=== PATIENT | male | born 1935 | race Caucasian/White ===

== ENCOUNTER 2017-11-26 10:16 | Emergency (ER) | payer OTHER, BC ==
[~2017-11-26] VITALS: Ht 175.3 cm; Wt 70.4 kg
[2017-11-26 10:50] LABS: HEMOGLOBIN 15.1 G/DL (12.5-16.6); MCH 33.7 PG (29.0-34.0); MCHC 35.1 G/DL (30.0-36.0); PLATELET COUNT 217 K/uL (156-360); RBC DIS.WIDTH-CV 13.7 % (11.8-14.6); RBC DIS.WIDTH-SD 48.1 % (39-53); RED BLOOD COUNT 4.48 M/uL (4.00-5.50); WHITE BLOOD COUNT 16.1 K/uL (4.1-10.2)
[2017-11-26 11:03] LABS: ALBUMIN 4.2 g/dL (3.2-4.8)
[2017-11-26 11:04] LABS: CHLORIDE 104 mEq/L (99-109); POTASSIUM 4.3 mEq/L (3.7-5.4); SODIUM 139 mEq/L (136-147)
[2017-11-26 11:06] LABS: GLUCOSE 113 mg/dL (70-99); TOTAL PROTEIN 7.7 g/dL (6.4-8.3)
[2017-11-26 11:08] LABS: TOTAL BILIRUBIN 1.2 mg/dL (0.0-1.0)
[2017-11-26 11:08] LABS: APPEARANCE CLEAR ((CLEAR)); BILIRUBIN NEGATIVE; BLOOD NEGATIVE; COLOR YELLOW ((YELLOW)); GLUCOSE (STRIP) NEGATIVE; KETONES 5; LEUKOCYTES NEGATIVE; NITRITE NEGATIVE; PROTEIN (STRIP) 100
[2017-11-26 11:09] LABS: ALKALINE PHOSPHATASE 53 IU/L (3-129)
[2017-11-26 11:09] LABS: BACTERIA NONE SEEN /HPF; EPITHELIAL CELLS NONE SEEN /HPF; MUCUS 1+ /LPF; RED BLOOD CELLS 0-5 /HPF (0-5); UCUL ADDED? NO; WHITE BLOOD CELLS 0-5 /HPF (0-5)
[2017-11-26 11:10] LABS: CREATININE 0.9 mg/dL (0.6-1.3); GFR ESTIMATE (CALCULATED) > 59 mL/min/ (58.99-99999)
[2017-11-26 11:11] LABS: AST (GOT) 15 IU/L (2-34); UREA NITROGEN (BUN) 15 mg/dL (9-23)
[2017-11-26 11:12] LABS: ALT (GPT) 14 IU/L (3-49)
[2017-11-26] MEDS ORDERED: FLAGYL500 MG PO (14:31)
[2017-11-26] MEDS ORDERED: CIPRO500 MG PO (14:31)
[2017-11-26 14:52] VITALS: BP 147/68
== END 2017-11-26 15:14 | disposition home or self-care (01) ==
LOC: EXP 10:16 → EME 10:16 → EXP 15:14
DX: K57.32 Diverticulitis of large intestine without perforation or abscess without bleeding (principal); M51.26 Other intervertebral disc displacement, lumbar region; N20.0 Calculus of kidney; Z79.82 Long term (current) use of aspirin
CPT/HCPCS: 74177; 80053; 81003; 85027; 99281; 99284; J1885; J7120